=== PATIENT | male | born 1975 | race Caucasian/White ===

== ENCOUNTER 2017-02-04 17:02 | Inpatient (IN) | payer MEDICAID ==
[~2017-02-04] VITALS: Ht 188 cm; Wt 83.9 kg
[2017-02-04 18:58] LABS: BASOPHILS 0.2 % (0-2); EOSINOPHILS 1.3 % (0-7); HEMATOCRIT 38.6 % (42.0-54.0); HEMOGLOBIN 13.6 g/dL (13.5-17.5); IMMATURE GRANULOCYTES 0.2 % (0-5); LYMPHOCYTES 45.5 % (15-50); MCHC 35.2 g/dL (31.0-37.0); MCV 87.9 fL (80.0-100.0); MEAN PLATELET VOLUME 11.1 fL (7.4-10.4); MONOCYTES 5.8 % (2-11); PLATELET COUNT 155 10x3/uL (130-400); RBC 4.39 10x6/uL (4.20-6.10); RDW 12.2 % (11.5-14.5); WBC 5.5 10x3/uL (4.8-10.8)
[2017-02-04 19:21] LABS: ALBUMIN 3.7 g/dL (3.4-5.0); ANION GAP 12.3 mmol/L (8-16); BILIRUBIN - TOTAL 0.4 mg/dL (0.2-1.3); CALCIUM 9.1 mg/dL (8.5-10.1); CARBON DIOXIDE 28.2 mmol/L (21.0-32.0); CREATININE - SERUM 1.2 mg/dL (0.6-1.3); POTASSIUM - SERUM 4.5 mmol/L (3.5-5.1); PROTEIN - SERUM 7.2 g/dL (6.4-8.2)
[2017-02-04 20:18] LABS: APPEARANCE CLEAR (CLEAR); BILIRUBIN NEGATIVE (NEGATIVE); COLOR STRAW (YELLOW); GLUCOSE 100 mg/dL (NEGATIVE); KETONE NEGATIVE (NEGATIVE); LEUKOCYTE ESTERASE NEGATIVE (NEGATIVE); NITRITE NEGATIVE (NEGATIVE); PROTEIN NEGATIVE (NEGATIVE); UROBILINOGEN NORMAL (NORMAL)
[2017-02-04] MEDS ORDERED: DESERYL100 MG PO (23:04)
[2017-02-04] MEDS ORDERED: XANAX0.5 MG PO (23:04)
[2017-02-04] MEDS ORDERED: AUBAGIO14 MG PO (23:05)
[2017-02-04] MEDS ORDERED: PERCOCET 5-3251 TAB PO (23:07)
[2017-02-05 00:13] VITALS: BP 118/71; BMI 23.8
--- NOTE | 2017-02-05 00:36 | NUR ---
ADMISSION ASSESSMENT DONE PER ADMIT PACKET. IV OF NS PATENT LEFT ARM INFUSING AT 100CC'S/HR SITE CLEAR. PT IS NEWLY DX DIABETIC. ALERT/ORIENTED X3. ADMITTED TO DR. SOLIS.
[2017-02-05 04:00] VITALS: BP 108/70
--- NOTE | 2017-02-05 04:53 | NUR ---
REC'D PATIENT FROM ER. ALERT AND ORIENTED X4. DENIED PAIN AT THIS TIME. DID SOME EDUCATION ON DIABETES. VERBALIZED UNDERSTANDING. WILL HAVE HIM RETURN DEMONSTRATION THIS AM WITH FINGER STICK. DENIED FURTHER NEEDS AT THIS TIME. WILL CONT TO MONITOR. BED LOW, LOCKED, CALL LIGHT IN REACH.
--- NOTE | 2017-02-05 08:23 | NUR ---
AWAKE AND ALERT. ORIENTED X3. NO C/O AT THIS TIME. LUNGS ARE CLEAR BILATERALLY, NO COUGH NOTED. SKIN IS INTACT WITHOUT REDNESS. IV TO LEFT FOREARM IS PATENT WITHOUT REDNESS AT INSERTION SITE. DENIES NEEDS. BREAKFAST SERVED IN ROOM.
[2017-02-05 08:42] VITALS: BP 119/73
[2017-02-05 09:48] LABS: HEMATOCRIT 35.7 % (42.0-54.0); HEMOGLOBIN 12.6 g/dL (13.5-17.5); MCH 30.8 pg (26.0-34.0); MCHC 35.3 g/dL (31.0-37.0); MCV 87.3 fL (80.0-100.0); MEAN PLATELET VOLUME 10.5 fL (7.4-10.4); PLATELET COUNT 148 10x3/uL (130-400); RBC 4.09 10x6/uL (4.20-6.10); RDW 12.4 % (11.5-14.5); WBC 4.6 10x3/uL (4.8-10.8)
[2017-02-05 09:54] LABS: CALCIUM 8.2 mg/dL (8.5-10.1); CARBON DIOXIDE 31.7 mmol/L (21.0-32.0); CHLORIDE - SERUM 101 mmol/L (98-107); SODIUM 136 mmol/L (136-145)
[2017-02-05 09:55] LABS: CALC OSMOLALITY 285 mosm/kg (275-300); CREATININE - SERUM 0.8 mg/dL (0.6-1.3); GLUCOSE 366 mg/dL (74-106); POTASSIUM - SERUM 3.8 mmol/L (3.5-5.1); UREA NITROGEN 10 mg/dL (7-18); eGFR NON AFRICAN AMERICAN > 90 mL/min (90-120)
--- NOTE | 2017-02-05 10:33 | NUR ---
ATE ALL OF BREAKFAST. DENIES NEEDS.
[2017-02-05 11:07] LABS: EOSINOPHILS 2 % (0-7); LYMPHOCYTES 44 % (15-50); MONOCYTES 6 % (2-11); NEUTROPHILS 46 % (40-80); PLATELET ESTIMATE NORMAL
--- NOTE | 2017-02-05 11:45 | NUR ---
FSBS 330. GIVEN 8 UNITS REGULAR SUBQ PER SS. WAS ABLE TO DO INJECTION AND DRAW UP INSULIN HIMSELF.
[2017-02-05 12:01] VITALS: BP 129/69
[2017-02-05 13:12] VITALS: Ht 188 cm; Wt 83.9 kg
[2017-02-05 13:23] LABS: HEMOGLOBIN A1C 11.9 % (4.8-6.0)
--- NOTE | 2017-02-05 15:22 | NUR ---
SITTING UP IN BED. NO C/O AFTER THE HYDROCODONE GIVEN. FAMILY IN ROOM.
[2017-02-05 15:45] VITALS: BP 120/70
--- NOTE | 2017-02-05 17:00 | NUR ---
FSBS 342. GAVE SELF 12 UNITS REGULAR SUB Q FOR SAME. SUPPER SERVED IN ROOM.
[2017-02-05 20:00] VITALS: BP 119/82
[2017-02-06 04:00] VITALS: BP 107/63
--- NOTE | 2017-02-06 04:42 | NUR ---
ASSESSED AT THE BEGINNING OF THE SHIFT. PT IS ALERT AND ORIENTED, ABLE TO VERBALIZE NEEDS. HE SEEMS TO UNDERSTAND HIS NEW INSULIN AND STATED HIS BROTHER AND FATHER HAVE BEEN DIABETIC FOREVER. 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 NO COMPLAINTS HAVE BEEN VOICED AND HE HAS RESTED WELL DURING THE NIGHT. THE BED IS LOW, RAILS UP X'S 2 WITH THE CALL LIGHT AT HAND.
[2017-02-06 06:20] LABS: BASOPHILS 0.2 % (0-2); EOSINOPHILS 1.8 % (0-7); HEMATOCRIT 36.8 % (42.0-54.0); HEMOGLOBIN 12.6 g/dL (13.5-17.5); IMMATURE GRANULOCYTES 0.2 % (0-5); MCH 30.4 pg (26.0-34.0); MCHC 34.2 g/dL (31.0-37.0); MCV 88.9 fL (80.0-100.0); MEAN PLATELET VOLUME 10.9 fL (7.4-10.4); MONOCYTES 6.1 % (2-11); NEUTROPHILS 32.7 % (40-80); PLATELET COUNT 147 10x3/uL (130-400); RBC 4.14 10x6/uL (4.20-6.10); RDW 12.6 % (11.5-14.5); WBC 5.1 10x3/uL (4.8-10.8)
[2017-02-06 06:52] LABS: ALBUMIN 2.8 g/dL (3.4-5.0); ALKALINE PHOSPHATASE 47 U/L (46-116); ALT (SGPT) 31 U/L (10-68); CALCIUM 8.1 mg/dL (8.5-10.1); CARBON DIOXIDE 25.7 mmol/L (21.0-32.0); CHLORIDE - SERUM 105 mmol/L (98-107); CREATININE - SERUM 0.8 mg/dL (0.6-1.3); POTASSIUM - SERUM 3.9 mmol/L (3.5-5.1); PROTEIN - SERUM 5.7 g/dL (6.4-8.2); SODIUM 138 mmol/L (136-145); UREA NITROGEN 9 mg/dL (7-18); eGFR NON AFRICAN AMERICAN > 90 mL/min (90-120)
[2017-02-06 06:53] LABS: CALC OSMOLALITY 284 mosm/kg (275-300); GLUCOSE 278 mg/dL (74-106)
--- NOTE | 2017-02-06 07:30 | NUR ---
AWAKE AND ALERT. ORIENTED X3. NO C/O THIS AM. LUNGS ARE CLEAR BILATERALLY, NO COUGH NOTED. SKIN IS INTACT WITHOUT REDNESS. IV TO LEFT FOREARM IS PATENT WITHOUT REDNESS AT INSERTION SITE. DENIES NEEDS.
--- NOTE | 2017-02-06 08:05 | NUR ---
BREAKFAST SERVED IN ROOM. REQUESTED AND GIVNE ONE HYDROCODONE PO FOR C/O NECK AND SHOULDER PAIN. REPORTED CHRONIC. WILL MONITOR.
[2017-02-06 08:16] VITALS: BP 109/74
--- NOTE | 2017-02-06 08:43 | NUR ---
Patient Name: SAMIR KIM Admission Status: ER Accout number: [id number] Admission Date: 02-04-2017 : 1975 Admission Diagnosis: Attending: ANA Current LOS: 2 Anticipated DC Date: 02-09-2017 Planned Disposition: Home Primary Insurance: [place] PRIVATE OPTIONS [facility] Discharge Planning Comments: CM MET WITH PATIENT REGARDING D/C NEEDS AND PLANS. PATIENT STATED HE LIVES WITH HIS MOTHER (JAMES PERRY) AND SHE WILL DRIVE HIM HOME AT DISCHARGE. THERE ARE NO STEPS OR STAIRS AT HIS HOME PER PATIENT. PATIENT STATED HE IS INDEPENDENT WITH HIS CARE AND HAS A WALKER, AND SHOWER CHAIR AT HOME IF NEEDED. PATIENT IS A NEW DIABETIC AND HAS A PRESCRIPTION FOR A ONE TOUCH MACHINE. [employer] PAYS FOR STRIPS WHEN NEEDED WITH THE ONE TOUCH. PATIENT HAS NO PCP AT THIS TIME AND [facility]. PATIENT SIGNED THE LULY FORM FOR [facility] AT DISCHARGE. CM WILL CONTINUE TO FOLLOW PATIENT WITH D/C NEEDS AND PLANS. PCP NONE [facility] [phone] ALBERT DOUGHERTY (DAUGHTER) [phone] Parts Room Clerk: Kate Torres Is the patient Alert and Oriented? Yes 0 * How many steps to enter\exit or inside your home? 0 0 * PCP NONE 0 * Pharmacy [facility] 0 * Preadmission Environment Home with Family 0 * ADLs Independent 0 * Equipment Shower Chair Walker 0 * List name and contact numbers for known caregivers / representatives who currently or will assist patient after discharge: ALBERT DOUGHERTY (DAUGHTER) [phone] 0 * Community resources currently utilized None 0 * Additional services required to return to the preadmission environment? Yes 0 * Can the patient safely return to the preadmission environment? Yes 0 * Has this patient been hospitalized within the prior 30 days at any hospital? No 0 Grand Total: 0
[2017-02-06 12:11] VITALS: BP 107/67
[2017-02-06] MEDS ORDERED: NICODERM C1 PATCH .2 TRANSDERM (12:55)
[2017-02-06] MEDS ORDERED: GLUCOPHAGE500 MG PO (12:55)
--- NOTE | 2017-02-06 14:29 | NUR ---
DISCHARGED TO HOME AMBULATORY WITH FAMILY. DISCHARGE INSTRUCTIONS GIVEN BOTH VERBALLY AND WRITTEN. ALL QUESTIONS ANSWERED. PATIENT AND VERBALIZED UNDERSTANDING OF SAME. NEEDED PRESCRIPTIONS ESCRIBED TO PHARMACY OF CHOICE. IV TO LEFT FOREARM D/C WITH CATHETER INTACT.
--- NOTE | 2017-02-09 15:02 | EC ---
PATIENT:SAMIR KIM DATE OF SERVICE: 02/04/17 SEX: M MEDICAL RECORD: [id number] DATE OF : [birth year] [facility] AGE OF PATIENT: 41 ADMISSION DATE: 02/04/17 REFERRING PHYSICIAN: INTERPRETING PHYSICIAN: GARETH THAPA MD ECHOCARDIOGRAM REPORT ECHO CHARGES 4 ECHO COMPLETE CLINICAL DIAGNOSIS: HX OF IV DRUG USE/ ASSESS FOR ENDOCARDITIS ECHOCARDIOGRAPHIC MEASUREMENTS (adult normal given) AC root (d.<3.7cm) 4.1 LV Septum d (<1.2 cm> 1.6 Valve Excursion 1.9 LV Septum (systole) 1.9 Left Atria (s.<4.0cm> 3.9 LVPW d(<1.2cm) 1.5 RV (d.<2.3cm) 3.0 LVPW (sytole) 1.9 LV diastole(<5.6CM) 4.4 MV E-F(>70mm/sec) LV systole 3.1 LVOT Diameter 1.9 MV exc.(>10mm) 1.8 Est.ejection fraction (50-75%) Pericardial Effusion N DOPPLER: LVIT A 66.0 E 83.0 LA RVSP 17 LVOT 113 AOP1/2T Asc. Ao 136 RVOT 92 RA PA 115 AV Gradient Peak 7.42 AV Mean 4.29 AV Area 2.5 MV Gradient Peak 2.64 MV Mean 1.18 MV Area COMMENTS: Music Theory Teacher: Cecilio MARCOS Case Specialist:Cecilio Summers TAPE# PACS DATE OF SERVICE: 02/06/2017 Echocardiogram FINDINGS: 1. Left ventricular chamber size is within normal limits. Left ventricular systolic function is normal. Overall ejection fraction estimated at 55%. 2. Left atrium, right atrium, and right ventricular chamber sizes are within normal limits. 3. Valvular structures have normal structure and motion. ECHOCARDIOGRAM REPORT [id number] SAMIR KIM 4. Doppler interrogation reveals no significant valvular insufficiency or stenosis. 5. No evidence of vegetative endocarditis. TRANSINT:[id number] Voice Confirmation ID: [id number] DOCUMENT ID: [id number] GARETH THAPA MD at [id number] CC: [id number] DICTATION DATE: 02/06/17 1509 ICE SKATING COACH: 02/06/17 2312 DIS IN 02/06/17 [facility] [address] [place] [address]
--- NOTE | 2017-02-11 10:28 | NUR ---
LATE ENTRY: PATIENT D/C WITH [facility]
== END 2017-02-06 14:31 | disposition home health service (06) | DRG 639 ==
LOC: D.ER 17:02 → D.MS 21:32
PROVIDERS: Emergency Medicine; Internal Medicine; Nurse Practitioner Acute Care; ADMIT Family Medicine
DX: E11.65 Type 2 diabetes mellitus with hyperglycemia (principal); G35 Multiple sclerosis; K21.9 Gastro-esophageal reflux disease without esophagitis; F31.9 Bipolar disorder, unspecified; F17.200 Nicotine dependence, unspecified, uncomplicated

== ENCOUNTER 2018-01-04 18:37 | Emergency (ER) | payer MEDICAID ==
[2017-02-05 13:12] VITALS: BMI 23.7
[~2018-01-04 18:37] MED LIST: AUBAGIO14 MG PO; DESERYL100 MG PO; GLUCOPHAGE500 MG PO; NICODERM C1 PATCH .2 TRANSDERM; PERCOCET 5-3251 TAB PO; XANAX0.5 MG PO
[2018-01-04 19:42] LABS: BASOPHILS 0.1 % (0-2); EOSINOPHILS 1.4 % (0-7); HEMATOCRIT 38.3 % (42.0-54.0); HEMOGLOBIN 13.5 g/dL (13.5-17.5); IMMATURE GRANULOCYTES 0.1 % (0-5); LYMPHOCYTES 41.7 % (15-50); MCH 30.3 pg (26.0-34.0); MCHC 35.2 g/dL (31.0-37.0); MCV 85.9 fL (80.0-100.0); MEAN PLATELET VOLUME 11.6 fL (7.4-10.4); MONOCYTES 4.2 % (2-11); NEUTROPHILS 52.5 % (40-80); PLATELET COUNT 170 10x3/uL (130-400); RBC 4.46 10x6/uL (4.20-6.10); RDW 12.2 % (11.5-14.5); WBC 7.7 10x3/uL (4.8-10.8)
[2018-01-04 19:56] LABS: APPEARANCE CLEAR (CLEAR); BILIRUBIN NEGATIVE (NEGATIVE); COLOR YELLOW (YELLOW); GLUCOSE 1000 mg/dL (NEGATIVE); KETONE SMALL mg/dL (NEGATIVE); NITRITE NEGATIVE (NEGATIVE); PROTEIN NEGATIVE (NEGATIVE); UROBILINOGEN NORMAL (NORMAL)
[2018-01-04 20:08] LABS: ALBUMIN 3.7 g/dL (3.4-5.0); ALKALINE PHOSPHATASE 74 U/L (46-116); ALT (SGPT) 26 U/L (10-68); BILIRUBIN - TOTAL 0.19 mg/dL (0.2-1.3); CALCIUM 8.9 mg/dL (8.5-10.1); CARBON DIOXIDE 26.4 mmol/L (21.0-32.0); CHLORIDE - SERUM 94 mmol/L (98-107); CREATININE - SERUM 1.1 mg/dL (0.6-1.3); POTASSIUM - SERUM 4.3 mmol/L (3.5-5.1); PROTEIN - SERUM 7.4 g/dL (6.4-8.2); SODIUM 129 mmol/L (136-145); UREA NITROGEN 20 mg/dL (7-18); eGFR NON AFRICAN AMERICAN 78 mL/min (90-120)
[2018-01-04 20:13] LABS: CALC OSMOLALITY 290 mosm/kg (275-300)
[2018-01-04 20:15] LABS: GLUCOSE 619 mg/dL (74-106)
[2018-01-04 20:16] LABS: KETONE - SERUM NEGATIVE (NEGATIVE)
== END 2018-01-04 22:24 | disposition home or self-care (01) ==
LOC: D.ER 18:37
PROVIDERS: Family Medicine
DX: E11.65 Type 2 diabetes mellitus with hyperglycemia (principal)

== ENCOUNTER 2018-02-20 21:30 | Emergency (ER) | payer MEDICAID ==
[~2018-02-20] VITALS: Ht 188 cm; Wt 113.6 kg
[2018-02-20 21:34] VITALS: Ht 188 cm; Wt 113.6 kg
[2018-02-20] MEDS ORDERED: HUMULIN 70100 UNIT/1 (21:36)
[2018-02-20] MEDS ORDERED: HYDROCODON-ACE1 EAC7 (21:36)
[2018-02-21] MEDS ORDERED: LEVAQUIN500 MG PO (00:04)
[2018-02-21 01:57] VITALS: BP 114/80
== END 2018-02-21 01:58 | disposition home or self-care (01) ==
LOC: D.ER 21:30
DX: N45.2 Orchitis (principal); S30.22XA Contusion of scrotum and testes, initial encounter; Y04.0XXA Assault by unarmed brawl or fight, initial encounter; Y93.89 Activity, other specified; Y92.019 Unspecified place in single-family (private) house as the place of occurrence of the external cause; G35 Multiple sclerosis; E11.9 Type 2 diabetes mellitus without complications

== ENCOUNTER 2018-09-29 16:07 | Emergency (ER) | payer MEDICAID ==
[~2018-09-29] VITALS: Ht 188 cm; Wt 109.1 kg
[~2018-09-29 16:07] MED LIST changes: +HUMULIN 70100 UNIT/1; +HYDROCODON-ACE1 EAC7; +LEVAQUIN500 MG PO
[2018-09-29 16:43] VITALS: Ht 188 cm; Wt 109.1 kg
[2018-09-29] MEDS ORDERED: VIBRAMYCIN 100100 MG PO (20:51)
[2018-09-29] MEDS ORDERED: VOLTAREN75 MG PO (20:51)
[2018-09-29 21:35] VITALS: BP 136/97
== END 2018-09-29 21:35 | disposition home or self-care (01) ==
LOC: D.ER 16:07
DX: L03.221 Cellulitis of neck (principal); F17.200 Nicotine dependence, unspecified, uncomplicated

== ENCOUNTER → 2018-10-13 10:18 | Outpatient (CLI) | payer MEDICAID ==
[2018-09-29 16:43] VITALS: BMI 30.8
[~2018-10-13 10:18] MED LIST changes: +VIBRAMYCIN 100100 MG PO; +VOLTAREN75 MG PO
== END | disposition home or self-care (01) ==
LOC: D.RAD 10:15
PROVIDERS: ATTEND Pain Medicine Interventional Pain Medicine
DX: M79.671 Pain in right foot (principal)